=== PATIENT | male | born 1980 | race Caucasian/White ===

== ENCOUNTER 2017-01-19 07:49 | Day surgery (SDC) | payer MEDICAID ==
[~2017-01-19 07:49] MED LIST: Lidocaine 1% with EPINEPHrine 1:100,000 50 ML MDV ONE
[2017-01-19] MEDS ORDERED: Dextrose 5%-Lactated Ringers 1,000 ML IV SCH (08:15)
[2017-01-19] MEDS ORDERED: Propofol 200 MG/20 ML SDV ONE (08:49)
[2017-01-19] MEDS ORDERED: fentaNYL 100 MCG/2 ML SDV ONE (08:49)
[2017-01-19] MEDS ORDERED: Lidocaine 0.5% 50 ML SDV ONE (08:49)
[2017-01-19] MEDS ORDERED: Midazolam 1 MG/ML 2 ML SDV ONE (08:49)
[2017-01-19] MEDS ORDERED: ceFAZolin 2 GM in Premix Bag 1 BAG IV ONE (09:00)
[2017-01-19] MEDS ORDERED: Ketorolac 60 MG/2 ML SDV ONE (10:26)
[2017-01-19] MEDS ORDERED: fentaNYL 100 MCG/2 ML SDV IVPUSH ONE (10:46)
--- NOTE | 2017-01-23 12:18 | OR ---
DATE OF PROCEDURE: 01/19/2017 PREOPERATIVE DIAGNOSIS: Left carpal tunnel syndrome. POSTOPERATIVE DIAGNOSIS: Left carpal tunnel syndrome. PROCEDURE: Left carpal tunnel release ([id number]). ANESTHESIA: IV block plus sedation. INDICATION FOR PROCEDURE: This is a 36-year-old presenting with clinically quite severe bilateral carpal tunnel syndrome. The patient uses a heavy drill at work likely resulting in the repeated trauma. Clinically, he has what appears to be a straightforward carpal tunnel syndrome with paresthesias involving the thumb, index, middle, and ring fingers, but not the small finger and extension of the wrist does exacerbate the paresthesia as well as the discomfort radiating up into the forearm. Given this, plan is to proceed with a carpal tunnel release. The patient has bilateral symptoms, left worse than the right, and so left one will be done today. Potential risks including bleeding, infection, injury to underlying nerve branches, possible incomplete relief of symptoms were reviewed, and the patient wishes to proceed. DETAILS OF PROCEDURE: The patient was taken to the operating room and placed in a supine position. IV sedation was administered after which IV block was placed affecting the left forearm and hand. Those areas were then prepped and draped. A standard carpal tunnel incision was made, carried down through the skin and subcutaneous tissue. Markedly thickened transverse carpal ligament was then identified and divided for the length of the carpal tunnel. This included dissection underneath the hand to completely relieve the infection on the median nerve. Underlying nerve appeared to be intact. At this point, no further problems were noted and the incision was then closed with 4-0 Vicryl subdermal stitch along with a 5-0 Prolene skin stitch. Dressing was applied. The patient was taken to the recovery room in satisfactory condition. The plan will be to proceed with followup with Jil Ware on 01/30 and then schedule for having the right side done on 02/06/2017. Jaime Moss MD /[id number]
== END 2017-01-19 12:20 | disposition home or self-care (01) ==
LOC: JP.SDS 07:49
PROVIDERS: ATTEND Surgery
DX: G56.02 Carpal tunnel syndrome, left upper limb (principal); K21.9 Gastro-esophageal reflux disease without esophagitis; Z87.891 Personal history of nicotine dependence
CPT/HCPCS: 64721; J0690; J1885; J2250; J2704; J3010; J7042

== ENCOUNTER 2017-02-11 14:34 | Emergency (ER) | payer MEDICAID ==
--- NOTE | 2017-02-11 15:20 | EDM.PDOC ---
ED HPI GENERAL MEDICAL PROBLEM - General Chief Complaint: General Stated Complaint: PAIN IN WRIST/HAD MONA Time Seen by Provider: 02/11/17 15:10 Source of Information: Reports: Patient, RN Notes Reviewed History Limitations: Reports: No Limitations - History of Present Illness INITIAL COMMENTS - FREE TEXT/NARRATIVE: 36-year-old gentleman presents emergency department day complaint weakness he recently underwent carpal tunnel release left wrist on the of last month he did have some complications with that surgery including infection which she has taken clindamycin, he states over the last 3 days he has progressively gotten worse with weakness has felt feverish at home felt delusional at times problems with nausea no vomiting Generalized Pain Score (Numeric/FACES): 10 - Related Data Allergies Allergy/AdvReac Type Severity Reaction Status Date / Time No Known Allergies Allergy Verified 01/19/17 08:13 Home Meds: Home Meds oxyCODONE HCl/Acetaminophen [oxyCODONE-Acetaminophen 5-325] 1 tab PO Q4H PRN 05/20 [History] Clindamycin HCl [Clindamycin HCl] 1 tab PO TID 02/11/17 [History] Past Medical History HEENT History: Reports: Impaired Vision Gastrointestinal History: Reports: GERD, Other (See Below) Other Gastrointestinal History: Stomach ulcer Musculoskeletal History: Reports: Fracture, Other (See Below) Other Musculoskeletal History: Jarrod carpal tunnel syndrome Neurological History: Reports: Concussion - Infectious Disease History Infectious Disease History: Reports: Chicken Pox - Past Surgical History HEENT Surgical History: Reports: None GI Surgical History: Reports: None Neurological Surgical History: Reports: None Musculoskeletal Surgical History: Reports: None, Carpal Tunnel Social & Family History - Tobacco Use Smoking Status *Q: Former Smoker Years of Tobacco use: 5 Packs/Tins Daily: 2 Used Tobacco, but Quit: Yes Month Tobacco Last Used: 2004 Second Hand Smoke Exposure: No - Caffeine Use Caffeine Use: Reports: Coffee - Alcohol Use Days Per Week of Alcohol Use: 0 - Recreational Drug Use Recreational Drug Use: No ED ROS GENERAL - Review of Systems Review Of Systems: See Below Constitutional: Reports: Fever, Chills, Weakness HEENT: Reports: No Symptoms Respiratory: Reports: Shortness of Breath Cardiovascular: Reports: No Symptoms GI/Abdominal: Reports: Nausea : Reports: No Symptoms Musculoskeletal: Reports: Joint Pain (Left wrist pain) Skin: Reports: No Symptoms Neurological: Reports: Other (Delusional) Psychiatric: Reports: Hallucinations ED EXAM, GENERAL - Physical Exam Exam: See Below Free Text/Narrative:: General: Male, not in any distress, alert and oriented x3 HEENT: head is atraumatic normocephalic, eyes pupils equal round reactive to light, sclera clear no conjunctivitis appreciated. Ears tympanic membranes clear and crowder landmarks and light reflex are present bilaterally canals are clear. Nose no septal deviation, nares are clear, no blood present. Mouth mucosa is moist and pink no erythema or exudate noted in soft palate, tongue is midline uvula is midline, dentition is intact. Neck: Supple no thyromegaly no tracheal deviation. Nodes: Cervical nodes subclavicular nodes nontender no palpable lymphadenopathy noted. Lungs: clear to auscultation bilaterally with symmetrical respirations, no adventitious noise appreciated. CV: Regular rate and rhythm S1 and S2 appreciated no murmurs rubs or gallops noted. Abdomen: Soft, nontender, no palpable masses or organomegaly appreciated, no distention no guarding bowel sounds are present, . Neuro: Cranial nerves II through XII grossly intact Skin: Warm and dry, intact, surgical wounds clean dry and intact Extremities: No lower extremity edema appreciated, pedal pulse is +2. Course - Vital Signs Last Recorded V/S: Last Vital Signs Temp 96.6 F 02/11/17 15:08 Pulse 83 02/11/17 15:08 Resp 12 02/11/17 15:08 BP 122/68 02/11/17 15:08 Pulse Ox 95 02/11/17 15:08 - Orders/Labs/Meds Orders: Active Orders 24 hr Category Date Time Status Chest 2V [CR] Urgent Exams 02/11/17 15:17 Taken Labs: Laboratory Tests 02/11/17 02/11/17 02/11/17 Range/Units 15:31 15:31 15:31 WBC 6.3 (4.5-11.0) K/uL RBC 4.88 (4.30-5.90) M/uL Hgb 15.8 H (12.0-15.0) g/dL Hct 46.0 (40.0-54.0) % MCV 94 (80-98) fL MCH 32 H (27-31) pg MCHC 34 (32-36) % Plt Count 216 (150-400) K/uL Neut % (Auto) 59 (36-66) % Lymph % (Auto) 30 (24-44) % Gila % (Auto) 10 H (2-6) % Eos % (Auto) 2 (2-4) % Baso % (Auto) 0 (0-1) % Sodium 140 (140-148) mmol/L Potassium 4.0 (3.6-5.2) mmol/L Chloride 104 (100-108) mmol/L Carbon Dioxide 31 (21-32) mmol/L Anion Gap 5.1 (5.0-14.0) mmol/L BUN 19 H (7-18) mg/dL Creatinine 1.1 (0.8-1.3) mg/dL Est Cr Clr Drug Dosing 94.62 mL/min Estimated GFR (MDRD) > 60 (>60) Glucose 96 (74-106) mg/dL Lactic Acid (0.4-2.0) mmol/L Calcium 9.2 (8.5-10.1) mg/dL Total Bilirubin 0.2 (0.2-1.0) mg/dL AST 85 H (15-37) U/L ALT 111 H (12-78) U/L Alkaline Phosphatase 79 (46-116) U/L Ammonia 26 (11-32) mmol/L C-Reactive Protein 0.05 (0.0-0.3) mg/dL Total Protein 7.1 (6.4-8.2) g/dL Albumin 3.7 (3.4-5.0) g/dL Globulin 3.4 (2.3-3.5) g/dL Albumin/Globulin Ratio 1.1 L (1.2-2.2) Lipase 91 (73-393) U/L TSH, Ultra Sensitive 1.411 (0.358-3.740) uIU/mL Urine Color Urine Appearance Urine pH (4.5-8.0) Ur Specific [place] (1.008-1.030) Urine Protein (NEGATIVE) mg/dL Urine Glucose (UA) (NEGATIVE) mg/dL Urine Ketones (NEGATIVE) mg/dL Urine Occult Blood (NEGATIVE) Urine Nitrite (NEGAITVE) Urine Bilirubin (NEGATIVE) Urine Urobilinogen (NORMAL) mg/dL Ur Leukocyte Esterase (NEGATIVE) Urine RBC (0-5) Urine WBC (0-5) Ur Epithelial Cells Amorphous Sediment Urine Bacteria Urine Mucus Urine Opiates Screen (NEGATIVE) Ur Oxycodone Screen (NEGATIVE) Urine Methadone Screen (NEGATIVE) Ur Propoxyphene Screen (NEGATIVE) Ur Barbiturates Screen (NEGATIVE) Ur Tricyclics Screen (NEGATIVE) Ur Phencyclidine Scrn (NEGATIVE) Ur Amphetamine Screen (NEGATIVE) U Methamphetamines Scrn (NEGATIVE) Urine MDMA Screen (NEGATIVE) U Benzodiazepines Scrn (NEGATIVE) U Cocaine Metab Screen (NEGATIVE) U Marijuana (THC) Screen (NEGATIVE) 02/11/17 02/11/17 02/11/17 Range/Units 15:31 15:31 15:31 WBC (4.5-11.0) K/uL RBC (4.30-5.90) M/uL Hgb (12.0-15.0) g/dL Hct (40.0-54.0) % MCV (80-98) fL MCH (27-31) pg MCHC (32-36) % Plt Count (150-400) K/uL Neut % (Auto) (36-66) % Lymph % (Auto) (24-44) % [place]ila % (Auto) (2-6) % Eos % (Auto) (2-4) % Baso % (Auto) (0-1) % Sodium (140-148) mmol/L Potassium (3.6-5.2) mmol/L Chloride (100-108) mmol/L Carbon Dioxide (21-32) mmol/L Anion Gap (5.0-14.0) mmol/L BUN (7-18) mg/dL Creatinine (0.8-1.3) mg/dL Est Cr Clr Drug Dosing mL/min Estimated GFR (MDRD) (>60) Glucose (74-106) mg/dL Lactic Acid 1.0 (0.4-2.0) mmol/L Calcium (8.5-10.1) mg/dL Total Bilirubin (0.2-1.0) mg/dL AST (15-37) U/L ALT (12-78) U/L Alkaline Phosphatase (46-116) U/L Ammonia (11-32) mmol/L C-Reactive Protein (0.0-0.3) mg/dL Total Protein (6.4-8.2) g/dL Albumin (3.4-5.0) g/dL Globulin (2.3-3.5) g/dL Albumin/Globulin Ratio (1.2-2.2) Lipase (73-393) U/L TSH, Ultra Sensitive (0.358-3.740) uIU/mL Urine Color Yellow Urine Appearance Slightly cloudy Urine pH 7.0 (4.5-8.0) Ur Specific [place] 1.015 (1.008-1.030) Urine Protein Negative (NEGATIVE) mg/dL Urine Glucose (UA) Normal (NEGATIVE) mg/dL Urine Ketones Negative (NEGATIVE) mg/dL Urine Occult Blood Negative (NEGATIVE) Urine Nitrite Negative (NEGAITVE) Urine Bilirubin Negative (NEGATIVE) Urine Urobilinogen Normal (NORMAL) mg/dL Ur Leukocyte Esterase Negative (NEGATIVE) Urine RBC 0-5 (0-5) Urine WBC 0-5 (0-5) Ur Epithelial Cells Few Amorphous Sediment Many Urine Bacteria Few Urine Mucus Not seen Urine Opiates Screen Negative (NEGATIVE) Ur Oxycodone Screen Positive H (NEGATIVE) Urine Methadone Screen Negative (NEGATIVE) Ur Propoxyphene Screen Negative (NEGATIVE) Ur Barbiturates Screen Negative (NEGATIVE) Ur Tricyclics Screen Negative (NEGATIVE) Ur Phencyclidine Scrn Negative (NEGATIVE) Ur Amphetamine Screen Positive H (NEGATIVE) U Methamphetamines Scrn Positive H (NEGATIVE) Urine MDMA Screen Negative (NEGATIVE) U Benzodiazepines Scrn Negative (NEGATIVE) U Cocaine Metab Screen Negative (NEGATIVE) U Marijuana (THC) Screen Negative (NEGATIVE) Departure - Departure Time of Disposition: 16:56 Disposition: Home, Self-Care 01 Condition: Good Clinical Impression: Weakness - Discharge Information Referrals: Thiago Lawrence Sr, MD [Primary Care Provider] - Forms: ED Department Discharge Additional Instructions: Recommend stopping oxycodone, follow-up with your primary care in the next 3-5 days for reevaluation, call or return to the emergency department with worsening of symptoms - My Orders Last 24 Hours: My Active Orders 02/11/17 15:17 Chest 2V [CR] Urgent - Assessment/Plan Last 24 Hours: My Active Orders 02/11/17 15:17 Chest 2V [CR] Urgent Plan: Assessment Acuity = acute Site and laterality = confusion Etiology = probably related to oxycodone Manifestations = none Location of injury = Home Lab values = CBC unremarkable, AST elevated at 85 ALTs elevated at 111 consistent elevated liver enzymes, urine drug screen positive for opiates and methamphetamine Plan I did review lab work and urine drug screen results with him he is going to stop the oxycodone use Tylenol as needed for pain control follow-up with his primary care in 3-5 days for reevaluation if no improvement Patient was in agreement with the plan all questions were answered, they were instructed to return to the emergency department or call for worsening symptoms. This note was dictated using [employer] voice recognition software please call with any questions.
--- NOTE | 2017-02-13 08:45 | CR ---
Chest 2V INDICATION: sob FINDINGS: Negative chest.
== END 2017-02-11 17:23 | disposition home or self-care (01) ==
LOC: JP.ED 14:34
DX: R53.1 Weakness (principal); Z87.891 Personal history of nicotine dependence
CPT/HCPCS: 36415; 71020; 71020-26; 80053; 80305; 81001; 82140; 83605; 83690; 84443; 85025; 86140; 99283; 99284